=== PATIENT | female | born 1970 | race Caucasian/White ===

== ENCOUNTER → 2017-11-22 | Outpatient (CLI) | payer OTHER | LOC: M.RAD 14:06 | DX: Z12.31 Encounter for screening mammogram for malignant neoplasm of breast (principal) ==

== ENCOUNTER → 2018-05-07 | Outpatient (CLI) | payer OTHER | LOC: M.RAD 16:30 | DX: M25.461 Effusion, right knee (principal) ==

== ENCOUNTER 2019-05-18 11:46 | Emergency (ER) | payer OTHER ==
[~2019-05-18] VITALS: Ht 157.5 cm; Wt 86.2 kg
[2019-05-18] MEDS ORDERED: TESSALON PERLE100 MG PO (11:52)
[2019-05-18] MEDS ORDERED: LIPITOR40 MG PO (11:52)
[2019-05-18] MEDS ORDERED: LISINOPRIL20 MG PO (11:52)
[2019-05-18] MEDS ORDERED: [UNRECOGNIZED DRUG - OTHER] (11:53)
[2019-05-18] MEDS ORDERED: LIDOCAINE VISC100 ML MUCOUS MEM (11:55)
[2019-05-18 12:15] LABS: ABSOLUTE BASOPHILS 0.1 thou/uL (0.0-0.2); ABSOLUTE EOSINOPHILS 0.2 thou/uL (0.0-0.7); ABSOLUTE LYMPHOCYTES 2.6 thou/uL (0.8-5.3); ABSOLUTE MONOCYTES 0.6 thou/uL (0.0-1.2); ABSOLUTE NEUTROPHILS 3.6 thou/uL (1.6-8.1); BASOPHILS 0.8 %; EOSINOPHILS 2.4 %; HEMATOCRIT 41.1 % (37.0-47.0); HEMOGLOBIN 13.8 gm/dL (12.0-15.0); LYMPHOCYTES 37.3 %; MCH 29.8 pg (26.0-34.0); MCHC 33.5 g/dL (28.0-37.0); MCV 88.8 fL (80.0-100.0); MONOCYTES 7.9 %; MPV 9.9 fl. (7.2-11.1); NUCLEATED RBCS 0 /100WBC; PLATELET COUNT* 223 thou/uL (150-400); POLYS 51.6 %; RBC 4.63 mil/uL (4.20-5.00); RDW-CV 12.4 % (10.5-14.5)
[2019-05-18 12:24] LABS: CALCIUM 9.2 mg/dL (8.5-10.1); CREATININE 0.7 mg/dL (0.6-1.3); POTASSIUM 3.3 mmol/L (3.5-5.1)
[2019-05-18 12:27] LABS: APTT 25.6 Seconds (25.0-31.3); PROTIME 10.3 Seconds (9.20-11.50)
[2019-05-18 12:28] LABS: ALBUMIN 3.8 g/dL (3.4-5.0); TOTAL BILIRUBIN 0.6 mg/dL (<0.1-1.0); TOTAL PROTEIN 7.6 g/dL (6.4-8.2)
[2019-05-18] MEDS ORDERED: PREDNISONE 20 M20 M1 PO (13:00)
[2019-05-18] MEDS ORDERED: ACYCLOVIR 400400 MG PO (13:00)
[2019-05-18 13:12] VITALS: BP 128/62
--- NOTE | 2019-05-19 10:33 | EKG ---
[place] [address] ELECTROCARDIOGRAM REPORT Name: RUFUS ROMAN Room: [facility]#: [id number] Admission: 05/18/19 Attend Phys: Discharge: 05/18/19 Date of : 70 Report #: [id number] THIS REPORT FOR: //name// [facility] ED Test Date: 2019-05-18 Test Time: 12:03:30 Pat Name: RUFUS ROMAN Department: Room: Gender: F [employer]: : 1970 Requested By: Enoch Rodriguez Order Number: [id number] MD: Richard Whiteside Measurements Intervals [place] Rate: 86 P: 42 NM: 170 QRS: -16 QRSD: 87 T: -4 QT: 363 QTc: 434 Interpretive Statements Sinus rhythm Left ventricular hypertrophy, by voltage Borderline T abnormalities, inferior leads No previous ECG available for comparison Electronically Signed On 05-19-2019 10:33:43 CDT by Richard Whiteside [email or web address] <ELECTRONICALLY SIGNED> By: Richard Whiteside MD, [facility] 05/19/19 1033 1203 1203 Richard Whiteside MD, FACC /EPI
== END 2019-05-18 13:14 | disposition home or self-care (01) ==
LOC: M.ERS 11:46
PROVIDERS: Family Medicine
DX: G51.0 Bell's palsy (principal); I10 Essential (primary) hypertension; E78.5 Hyperlipidemia, unspecified; Z88.8 Allergy status to other drugs, medicaments and biological substances

== ENCOUNTER → 2020-08-23 | Outpatient (CLI) | payer OTHER ==
[~2020-08-23] MED LIST: ACYCLOVIR 400400 MG PO; LIDOCAINE VISC100 ML MUCOUS MEM; LIPITOR40 MG PO; LISINOPRIL20 MG PO; PREDNISONE 20 M20 M1 PO; TESSALON PERLE100 MG PO; [UNRECOGNIZED DRUG - OTHER]
== END ==
LOC: M.RAD 10:15
PROVIDERS: ATTEND Registered Nurse Diabetes Educator
DX: Z12.31 Encounter for screening mammogram for malignant neoplasm of breast (principal)

== ENCOUNTER → 2021-03-09 | Outpatient (CLI) | payer OTHER | LOC: M.CT 08:30 | PROVIDERS: ATTEND Registered Nurse Diabetes Educator | DX: Z13.6 Encounter for screening for cardiovascular disorders (principal) ==

== ENCOUNTER → 2021-04-06 | Outpatient (CLI) | payer OTHER | LOC: M.RAD 14:54 | PROVIDERS: ATTEND Registered Nurse Diabetes Educator | DX: M85.88 Other specified disorders of bone density and structure, other site (principal); Z78.0 Asymptomatic menopausal state ==

== ENCOUNTER → 2021-09-07 | Outpatient (CLI) | payer OTHER | LOC: M.RAD 09:39 | PROVIDERS: ATTEND Registered Nurse Diabetes Educator | DX: Z12.31 Encounter for screening mammogram for malignant neoplasm of breast (principal) ==